=== PATIENT | male | born 1980 | race Hispanic/Latino ===

== ENCOUNTER 2018-10-04 21:36 | Emergency (ER) | payer OTHER ==
[2018-10-04 22:14] LABS: APPEARANCE,URINE Clear (CLEAR); BILIRUBIN,URINE Negative (NEGATIVE); COLOR,URINE Yellow (YELLOW); GLUCOSE, URINE (UA) Negative (NEGATIVE); KETONES,URINE Negative (NEGATIVE); LEUKOCYTE ESTERASE ,URINE Negative (NEGATIVE); NITRATE,URINE Negative (NEGATIVE); OCCULT BLOOD,URINE Negative (NEGATIVE); PROTEIN,URINE Negative (NEGATIVE); UROBILINOGEN,URINE 0.2 mg/dL (0.2-1.0)
[2018-10-04] MEDS ORDERED: ONDANSETRON HCL 4 MG/2 ML VIAL ONE (22:36)
[2018-10-04] MEDS ORDERED: KETOROLAC TROMETHAMINE 30MG/ML ONE (22:36)
[2018-10-04 22:39] LABS: BASOPHILS % (AUTO) 0.6 % (0.0-5.0); EOSINOPHILS % (AUTO) 2.1 % (0.0-8.0); HEMATOCRIT 42.5 % (42-54); LYMPHOCYTES % (AUTO) 23.4 % (21.0-51.0); MEAN CORPUSCULAR HEMOGLOBIN 30.7 pg (27.0-33.0); MEAN CORPUSCULAR HGB CONC 35.2 g/dL (32.0-36.0); MONOCYTES % (AUTO) 7.2 % (3.0-13.0); NEUTROPHILS % (AUTO) 66.7 % (40.0-77.0); NUCLEATED RED BLOOD CELLS 0.1 % (0.0-0.19); PLATELET COUNT (AUTO) 247 K/uL (130-400); RED BLOOD CELL COUNT(AUTO) 4.89 MIL/uL (4.50-6.20); RED CELL DISTRIBUTION WIDTH 13.2 % (11.0-15.5); WHITE BLOOD COUNT (AUTO) 8.2 K/uL (4.8-10.8)
[2018-10-04 22:52] LABS: CREATININE 1.2 mg/dL (0.5-1.5); POTASSIUM 4.3 mmol/L (3.5-5.1)
[2018-10-04 22:57] LABS: ALBUMIN 3.8 g/dL (3.5-5.0); BILIRUBIN,TOTAL 0.4 mg/dL (0.2-1.0); TOTAL PROTEIN, SERUM 7.9 g/dL (6.0-8.3)
== END 2018-10-04 23:42 | disposition home or self-care (01) ==
LOC: EDH 21:36
DX: R10.32 Left lower quadrant pain (principal)
CPT/HCPCS: 36415; 80053; 81003; 83690; 85025; 96374; 96375; 99283; J1885; J2405

== ENCOUNTER 2018-11-29 15:01 | Emergency (ER) | payer SELFPAY | END 2018-11-29 16:07 | disposition home or self-care (01) | LOC: EDH 15:01 | DX: M70.22 Olecranon bursitis, left elbow (principal); Y93.89 Activity, other specified ==

== ENCOUNTER 2020-03-03 21:54 | Emergency (ER) | payer OTHER ==
[2020-03-03] MEDS ORDERED: TETRACAINE HCL 0.5% 4 ML OPHTH SOLN ONE (22:13)
[2020-03-03] MEDS ORDERED: FLUORESCEIN SODIUM 1 STRIP STRIP ONE (22:13)
[2020-03-03] MEDS ORDERED: SODIUM CHLORIDE 0.9% 500ML 1,000 ML IV ONE (22:40)
== END 2020-03-03 22:57 | disposition home or self-care (01) ==
LOC: EDH 21:54
DX: H10.33 Unspecified acute conjunctivitis, bilateral (principal)
CPT/HCPCS: 99283; J7040

== ENCOUNTER 2022-04-07 01:56 | Emergency (ER) | payer OTHER ==
[~2022-04-07] VITALS: Ht 177.8 cm; Wt 90.7 kg
[2022-04-07] MEDS ORDERED: IBUP-1493 PO (02:32)
[2022-04-07] MEDS ORDERED: AMOX500C2 PO (02:32)
[2022-04-07 02:45] VITALS: BP 144/92
== END 2022-04-07 02:58 | disposition home or self-care (01) ==
LOC: EDH 01:56
DX: K08.89 Other specified disorders of teeth and supporting structures (principal)